=== PATIENT | male | born 1970 ===

== ENCOUNTER 2016-08-31 03:22 | Emergency (ER) | payer SELFPAY ==
[~2016-08-31] VITALS: Ht 175.3 cm; Wt 87.5 kg
[2016-08-31 03:26] VITALS: Ht 175.3 cm; Wt 87.5 kg
== END 2016-08-31 03:32 | disposition left against medical advice (07) ==
LOC: E/R 03:22
DX: Z53.21 Procedure and treatment not carried out due to patient leaving prior to being seen by health care provider (principal)